=== PATIENT | female | born 1975 | race Caucasian/White ===

== ENCOUNTER 2022-01-04 17:07 | Emergency (ER) | payer OTHER, BC ==
[2022-01-04] MEDS ORDERED: IBUPROFEN 400 MG TABLET (FP) PO ONE ×2 (17:38→17:43)
[2022-01-04 17:51] VITALS: BP 94/63; PULSE 77; RESP 20; TEMP 98.9; BMI 23.8
== END 2022-01-04 21:11 | disposition home or self-care (01) ==
LOC: FER 17:07
DX: M54.2 Cervicalgia (principal); V49.40XA Driver injured in collision with unspecified motor vehicles in traffic accident, initial encounter
CPT/HCPCS: 72125-TC; 99284-25